=== PATIENT | male | born 1965 | race African-American/Black ===

== ENCOUNTER 2016-12-01 19:54 | Emergency (ER) | payer MEDICAID ==
[~2016-12-01] VITALS: Ht 175.3 cm; Wt 105.0 kg
[~2016-12-01 19:54] MED LIST: AMLO10TA80 PO; CLON0.3T PO; LABE100T PO
[2016-12-01 21:34] LABS: BASOPHILS % 0.8 % (0.0-2.0); EOSINOPHILS % 2.4 % (0.0-5.0); HEMATOCRIT. 29.7 % (42.0-52.0); HEMOGLOBIN. 9.9 g/dL (14.0-18.0); LYMPHOCYTES % 11.5 % (20.0-50.0); MEAN CORPUSCULAR HEMOGLOBIN 30.3 pg (28.0-32.0); MEAN CORPUSCULAR HGB CONC 33.3 g/dL (31.0-37.0); MEAN CORPUSCULAR VOLUME 90.9 fL (80.0-94.0); MEAN PLATELET VOLUME 8.3 fl (7.4-10.4); NEUTROPHILS % 75.3 % (40.0-76.0); PLATELET 222 x1000/uL (130-400); RED BLOOD CELL COUNT 3.27 mill/uL (4.7-6.1); RED CELL DISTRIBUTION WIDTH 18.3 % (11.6-14.6); WHITE BLOOD COUNT 7.3 x1000/uL (4.5-11.0)
[2016-12-01 21:36] LABS: CHLORIDE 96 mEq/L (98-107); INDEX HEMOLYSI 1 (1-3); INDEX ICTERIC 1 (1-4); INDEX LIPEMIC 1 (1-3)
[2016-12-01 21:40] LABS: ALBUMIN 3.4 g/dL (3.4-5.0); ANION GAP 16; CARBON DIOXIDE 29 mEq/L (21-32); LIPASE 77 IU/L (73-393); UREA NITROGEN BLOOD 29 mg/dL (7-21)
[2016-12-01 21:42] LABS: INR 1.1; PROTHROMBIN TIME 11.1 sec
[2016-12-01 21:43] LABS: ALANINE AMINOTRANSFERASE 18 IU/L (13-61); eGFR 6 mL/min (>60)
[2016-12-01] MEDS ORDERED: ACETAMINOPHEN WITH CODEINE 300/30MG TABLET PO ONE (23:45)
[2016-12-02] VITALS: BP 172/89
== END 2016-12-02 00:15 | disposition home or self-care (01) ==
LOC: ER 19:54
DX: R10.33 Periumbilical pain (principal); Z88.6 Allergy status to analgesic agent; Z79.899 Other long term (current) drug therapy; I12.9 Hypertensive chronic kidney disease with stage 1 through stage 4 chronic kidney disease, or unspecified chronic kidney disease; N18.9 Chronic kidney disease, unspecified; Z99.2 Dependence on renal dialysis; D64.9 Anemia, unspecified
CPT/HCPCS: 36415; 71010; 74176; 80053; 83690; 85025; 85610; 93005; 99285; Z7610